=== PATIENT | male | born 1955 | race Caucasian/White ===

== ENCOUNTER 2019-01-31 02:35 | Emergency (ER) | payer OTHER, MEDICAID ==
--- NOTE | 2019-01-31 02:55 | ED ---
Complex/Multi-Sys Presentation - HPI Summary HPI Summary: Patient is a 63 y/o M presenting to ED with concerns that he has a tick located at his right hip area. Tick was first noticed about an hour ago today. No other Sx are reported. On triage, pain is rated 1/10. Touching right hip area aggravate Sx. Home medications and allergies are reviewed. - History Of Current Complaint Chief Complaint: EDRashSkinAbscess Time Seen by Provider: 01/31/19 02:48 Hx Obtained From: Patient Onset/Duration: Lasting Hours - noticed tick an hour ago, Still Present Timing: Constant, Hours - noticed tick an hour ago Severity Currently: Mild Aggravating Factor(s): nothing Alleviating Factor(s): nothing Associated Signs And Symptoms: Positive: Other - tick at right hip - Allergies/Home Medications Allergies/Adverse Reactions: Allergies Allergy/AdvReac Type Severity Reaction Status Date / Time No Known Allergies Allergy Verified 01/31/19 02:38 PMH/Surg Hx/FS Hx/Imm Hx Endocrine/Hematology History: Denies: Hx Diabetes Cardiovascular History: Denies: Hx Hypertension Infectious Disease History: No Infectious Disease History: Denies: Traveled Outside the [place] in Last 30 Days - Family History Known Family History: Negative: Hypertension, Diabetes - Social History Alcohol Use: None Substance Use Type: Reports: None Smoking Status (MU): Never Smoked Tobacco Review of Systems Negative: Fever - on vitals, temp is 97.8 F Skin: Other - POSITIVE - TICK AT RIGHT HIP AREA All Other Systems Reviewed And Are Negative: Yes Physical Exam - Summary Physical Exam Summary: VITAL SIGNS: Reviewed. GENERAL: Patient is a well-developed and nourished male who is lying comfortable in the stretcher. Patient is not in any acute respiratory distress. HEAD AND FACE: No signs of trauma. No ecchymosis, hematomas or skull depressions. No sinus tenderness. EYES: PERRLA, EOMI x 2, No injected conjunctiva, no nystagmus. EARS: Hearing grossly intact. Ear canals and tympanic membranes are within normal limits. MOUTH: Oropharynx within normal limits. NECK: Supple, trachea is midline, no adenopathy, no JVD, no carotid bruit, no c- spine tenderness, neck with full ROM CHEST: Symmetric, no tenderness at palpation LUNGS: Clear to auscultation bilaterally. No wheezing or crackles. CVS: Regular rate and rhythm, S1 and S2 present, no murmurs or gallops appreciated. ABDOMEN: Soft, non-tender. No signs of distention. No rebound no guarding, and no masses palpated. Bowel sounds are normal. EXTREMITIES: FROM in all major joints, no edema, no cyanosis or clubbing. NEURO: Alert and oriented x 3. No acute neurological deficits. Speech is normal and follows commands. SKIN: Dry and warm; Tick at right hip area is noted. Triage Information Reviewed: Yes Vital Signs On Initial Exam: Initial Vitals Temp Pulse Resp BP Pulse Ox 97.8 F 54 16 128/74 95 01/31/19 02:36 01/31/19 02:36 01/31/19 02:36 01/31/19 02:36 01/31/19 02:36 Vital Signs Reviewed: Yes Diagnostics - Vital Signs Vital Signs Temp Pulse Resp BP Pulse Ox 01/31/19 02:36 97.8 F 54 16 128/74 95 - Laboratory Lab Statement: Any lab studies that have been ordered have been reviewed, and results considered in the medical decision making process. Complex Multi-Symp Course/Dx Course Of Treatment: Patient is a 63 y/o M presenting to ED with concerns that he has a tick located at his right hip area. Tick was first noticed about an hour ago today. No other Sx are reported. Tick was removed from the patient. He will be discharged to home. He was advised to follow up with PCP for antibiotics if he developed a bulls eye rash and to otherwise have a Lyme test in six weeks. He is agreeable with this plan. - Diagnoses Provider Diagnoses: Tick bite Discharge - Sign-Out/Discharge Documenting (check all that apply): Patient Departure - discharge Patient Received Moderate/Deep Sedation with Procedure: No - Discharge Plan Condition: Stable Disposition: HOME Patient Education Materials: Tick Bite (ED) Referrals: [facility] [Outside] Additional Instructions: PLEASE RETURN TO THE ED IMMEDIATELY FOR WORSENING OR CONCERNING SYMPTOMS. IF YOU DEVELOP A BULLS EYE RASH, FOLLOW UP WITH YOUR PRIMARY CARE PHYSICIAN FOR ANTIBIOTICS. OTHERWISE, HAVE A LYME TEST DONE IN SIX WEEKS. - Attestation Statements Document Initiated by Scribe: Yes Documenting Scribe: JONATHAN VYAS Provider For Whom Belem is Documenting (Include Credential): [place] Attestation: JONATHAN Santana scribed for LEONA PYLE MD on 01/31/19 at 0304. Status of Scribe Document: Ready
[2019-01-31] MEDS ORDERED: Ibuprofen TAB* 400 MG PO ONE (02:57)
== END 2019-01-31 03:11 | disposition home or self-care (01) ==
LOC: ED 02:35
DX: S70.261A Insect bite (nonvenomous), right hip, initial encounter (principal); W57.XXXA Bitten or stung by nonvenomous insect and other nonvenomous arthropods, initial encounter; Y92.9 Unspecified place or not applicable
CPT/HCPCS: 99282; A9270-GY